=== PATIENT | female | born 1960 | race Caucasian/White ===

== ENCOUNTER 2017-10-07 13:19 | Day surgery (SDC) | payer BC ==
[~2017-10-07] VITALS: Ht 167.6 cm; Wt 131.8 kg
[2017-10-07] MEDS ORDERED: XARELTO15 MG PO (13:52)
[2017-10-07] MEDS ORDERED: CYMBALTA60 MG PO (13:53)
[2017-10-07] MEDS ORDERED: TRILEPTAL300 MG PO (13:54)
[2017-10-07] MEDS ORDERED: ADDERALL 15 MG15 MG PO (13:54)
[2017-10-07] MEDS ORDERED: XANAX1 MG PO (13:55)
[2017-10-07] MEDS ORDERED: TRAZODONE HCL50 MG PO (13:56)
[2017-10-07 14:09] VITALS: BP 135/75; Ht 167.6 cm; Wt 131.8 kg
[2017-10-07 14:44] LABS: HEMATOCRIT 38.1 % (36.0-48.0); HEMOGLOBIN 12.6 g/dL (12-16); MCH 29.6 pg (26.0-34.0); MCHC 33.1 g/dL (31.0-37.0); MCV 89.6 fL (80.0-100.0); MEAN PLATELET VOLUME 9.1 fL (7.4-10.4); RBC 4.25 10x6/uL (4.00-5.40); RDW 12.5 % (11.5-14.5); WBC 5.1 10x3/uL (4.8-10.8)
[2017-10-07 15:01] LABS: ANION GAP 12.9 mmol/L (8-16); CALCIUM 9.1 mg/dL (8.5-10.1); CARBON DIOXIDE 29.2 mmol/L (21.0-32.0); CREATININE - SERUM 1.1 mg/dL (0.6-1.3); POTASSIUM - SERUM 4.1 mmol/L (3.5-5.1)
--- NOTE | 2017-10-08 10:48 | OP ---
PATIENT NAME: MAXIMILIANO READ MEDICAL RECORD: [id number] :58 LOCATION:[facility] ADMISSION DATE: SURGEON: KHANG MENDOZA DO DATE OF OPERATION: 10/07/2017 PROCEDURE: Colonoscopy with biopsy and polypectomy. INDICATION FOR PROCEDURE: Hematochezia. SCOPE: Olympus video pediatric colonoscope. MEDICATIONS: Propofol 420 mg IV per anesthesia. WITHDRAWAL TIME: 12 minutes. ESTIMATED BLOOD LOSS: Minimal. COMPLICATIONS: None. FINDINGS: Informed consent was given. The patient was made comfortable with the above medication. After reaching an adequate level of sedation by slow IV push, the patient was placed on her left side. A digital rectal examination was performed and was normal. The endoscope was then advanced under direct visualization through the rectum to the cecum with visualization of the appendiceal orifice and the ileocecal valve. The endoscope was slowly withdrawn and mucosa was carefully examined. The prep quality was excellent. There was a single polyp visualized on today's examination. It was benign appearing, sessile, and located in the cecum. It measured approximately 2 to 3 mm in diameter. It was removed using cold forceps in one piece and completely retrieved. There were multiple small and large-mouth diverticula located in all segments of the colon. Severity was mild. Retroflexion was performed in the rectum with visualization of grade I, nonbleeding internal hemorrhoids. The endoscope was withdrawn from the patient. The patient tolerated the procedure well and there were no complications. IMPRESSION: 1. A single cecal polyp removed using cold forceps. 2. Mild diverticulosis involving the entire colon. 3. Grade I internal hemorrhoids. PLAN AND RECOMMENDATIONS: 1. Discharge home when recovery parameters are met. 2. Continue current diet. 3. Continue current medications. 4. Supplement diet with 2 tablespoons of Metamucil or another psyllium husk fiber daily to maintain regular, soft bowel movements. 5. Minimize straining. 6. Recall colonoscopy in 5 years. TRANSINT:[id number] Voice Confirmation ID: [id number] DOCUMENT ID: [id number] OPERATIVE REPORT [id number] MAXIMILIANO READ KHANG MENDOZA DO at 1048 CC: [id number] DICTATION DATE: 10/07/17 1634 CORE CUTTER: 10/07/17 1741 [facility] 10/07/[address] [facility] [address] [place] [address]
== END 2017-10-07 17:30 | disposition home or self-care (01) ==
LOC: D.OPS 13:19
PROVIDERS: Anesthesiology; Internal Medicine Gastroenterology
DX: D12.0 Benign neoplasm of cecum (principal); K57.30 Diverticulosis of large intestine without perforation or abscess without bleeding; K64.0 First degree hemorrhoids; Z01.812 Encounter for preprocedural laboratory examination

== ENCOUNTER → 2021-03-19 13:11 | Day surgery (SDC) | payer BC ==
[2017-10-07 14:09] VITALS: BMI 46.9
--- NOTE | 2021-03-18 14:53 | NUR ---
ATTEMPTED TO CONFIRM PT HIP INJECTION FOR 03/19/21 - NO ANSWER, LEFT MESSAGE TO CALL BACK
--- NOTE | ~2021-03-19 | HEMODYNAMI ---
PATIENT:MAXIMILIANO READ MEDICAL RECORD: [id number] : 58 LOCATION:[facility] ADMISSION DATE: 03/19/21 Generatedon:114:07 Patient name: MAXIMILIANO READ Patient #: [id number] SSN: DO B: 1960 Date of study: 03/19/2021 Page: Of Hemodynamic Procedure Report Patient Data Patient Demographics Procedure consent was obtained First Name: MAXIMILIANO Gender: Female Last Name: JACEK : 1960 Middle Initial: D Age: 60 year(s) Patient #: [id number] Race: Unknown Additional ID: [id number] Contact details Address: [address] [place] [address] State: [place] City: [facility] Zip code: [address] Admission Admission Data Admission Date: 03/19/2021 Admission Time: 13:11 Procedure Procedure Types Cath Procedure Peripheral Cath Diagnostic Procedure Miscellaneous Procedure Description Procedure Date Procedure Date: 03/19/2021 Procedure Start Time: 13:54 Procedure Staff Name Function Yani Aviles MD Performing Physician Tyler Montesinos RT Monitor Basilia Sarmiento RT Scrub Procedure Data Cath Procedure Fluoroscopy Diagnostic fluoroscopy Total fluoroscopy Time: 3.2 time: 3.2 min min Diagnostic fluoroscopy Total fluoroscopy dose: 57 dose: 57 mGy mGy Contrast Material Contrast Material Type Amount (ml) Isovue 200 5 Hemodynamics Rest Pre Cath Intra NCS Post Cath Procedure Log Time Note 13:48:31 Tyler Montesinos RT (R) (CV) sent for patient. Start room use. 13:49:11 Patient received from Outpatients to IR Alert and oriented. Tansferred to table in Supine position. 13:49:15 Signed procedure consent form obtained from patient. 13:49:17 Correct patient and procedure confirmed by team. 13:49:18 Full Disclosure recording started 13:49:18 - 13:49:19 Pre-procedure instructions explained to patient. 13:49:20 Pre-op teaching completed and patient verbalized understanding. 13:49:40 SAFE-T PLUS MYELOGRAM TRAY opened to sterile field. 13:49:52 pt states no allergies 13:49:56 Is patient on blood thinner?Yes 13:50:01 ACC The patient was administered the following blood thiners within the last 24 hours: Xarelto 13:50:08 Right groin site verified by team. 13:53:56 --------ALL STOP TIME OUT------ 13:53:56 Final Timeout: patient, procedure, and site verified with staff and physician. All members of the team are in agreement. 13:54:05 Sedation plan: Local Anesthetic Medication:Lidocaine 13:54:31 Procedure started. 13:54:38 Local anesthetic to Right Hip with Lidocaine 1% by Yani Aviles MD.INITIA L ACCESS ONLY 14:05:43 Procedure ended.(Physican Out) 14:06:00 Fluoroscopy time 03.20 minutes. 14:06:05 Fluoroscopy dose: 57 mGy 14:06:05 Flurop Dose total: 57 14:06:30 Contrast amount:Isovue 200 5ml. Device Usage Item Name Manufacture Quantity Catalog Hospital Part Current Minimal Lot# / Number Charge Number Stock Stock Serial# Code SAFE-T [employer] 1 [id number] PLUS MYELOGRAM TRAY Signature Audit [place] Stage Time Signature Unsigned Intra-Procedure 03/19/2021 Tyler 2:07:28 PM [facility] RT (R) (CV) [facility] [address] [place] [address]
[~2021-03-19 13:11] MED LIST: ADDERALL 15 MG15 MG PO; CYMBALTA60 MG PO; TRAZODONE HCL50 MG PO; TRILEPTAL300 MG PO; XANAX1 MG PO; XARELTO15 MG PO
== END | disposition home or self-care (01) ==
LOC: D.RAD 13:11
PROVIDERS: ATTEND Nurse Practitioner Family
DX: M16.11 Unilateral primary osteoarthritis, right hip (principal)